=== PATIENT | female | born 1975 | race African-American/Black ===

== ENCOUNTER → 2016-04-01 | Outpatient (CLI) | payer OTHER ==
[~2016-04-01] MED LIST: IBUPROFEN 800800 MG PO; KEFLEX500 MG PO; LISINOPRIL20 MG PO; NORCO 5-325 TA1 EACH PO; PANTOPRAZOLE SO40 M1 PO; SINGULAIR; SYMBICORT160 MCG/4.
== END ==
LOC: PET 09:30
DX: D86.9 Sarcoidosis, unspecified (principal); R91.1 Solitary pulmonary nodule; R59.9 Enlarged lymph nodes, unspecified

== ENCOUNTER → 2016-07-15 | Outpatient (CLI) | payer OTHER | LOC: RAD 08:24 | DX: K44.9 Diaphragmatic hernia without obstruction or gangrene (principal); R10.9 Unspecified abdominal pain; K21.0 Gastro-esophageal reflux disease with esophagitis ==